=== PATIENT | female | born 1995 | race Caucasian/White ===

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

== ENCOUNTER 2018-08-12 20:13 | Emergency (ER) | payer OTHER ==
[~2018-08-12] VITALS: Ht 160 cm; Wt 72.5 kg
[~2018-08-12 20:13] MED LIST changes: +AMOX1TAB10 PO; +SODI126M NASAL
[2018-08-12 20:21] VITALS: Ht 160 cm; Wt 72.5 kg
--- NOTE | 2018-08-12 22:22 | ERD ---
ER Documentation Chief Complaint Chief Complaint FINGER PAIN, L 3RD DIGIT X'S 2 DAYS HPI This is a 23-year-old female presents here to emerge department with complaints of left middle finger pain, mild redness for about 2 days. Stated that she might have been bitten by a insect. Also complains of right lower back pain that rates right lower extremity. LMP: 08/10/2018. G0, . Denies headache, head injury, loss of consciousness, dizziness, neck pain, neck stiffness, throat pain, difficulty swallowing, difficulty breathing lying flat, shoulder pain, chest pain, back pain, abdominal pain, nausea, vomiting, constipation, diarrhea, urinary symptoms, or possibility being , loss of bowel and bladder control, trauma, injury, falls, difficulty walking due to pain, numbness or tingling sensation, calf pain, recent travel, recent major surgery in the last 3 weeks, calf pain, recent long travel, recent exposure to any illness, recent antibiotic use in the last 3 months, fever, chills, seizures. Past medical history: Surgical history: Social: Denies smoking, use of alcoholic beverages, use of illegal drugs. ROS All systems reviewed and are negative except as per history of present illness. Medications Home Meds Active Scripts Cyclobenzaprine Hcl* (Cyclobenzaprine Hcl*) 10 Mg Tablet, 10 MG PO TID PRN for MUSCLE SPASMS, #15 TAB Prov:ANDERARACELIDALIAKALEIGH F 08/12/18 Cephalexin* (Keflex*) 500 Mg Capsule, 500 MG PO TID for 7 Days, CAP Prov:PASILACLEMDALIAAR F 08/12/18 Ibuprofen* (Motrin*) 800 Mg Tab, 800 MG PO Q6H PRN for PAIN AND OR ELEVATED TEMP, #30 TAB Prov:ANDERILADALIA NJAR F 08/12/18 Sodium Chloride (Saline Nasal Mist) 126 Ml Mist, 2 SPRAY NASAL Q2H PRN for NASAL CONGESTION, #1 BOTTLE Prov:VARSHA ANGELO CRYPTOLOGIC SUPPORT SPECIALIST 07/17/16 Ibuprofen* (Motrin*) 600 Mg Tab, 600 MG PO Q6H PRN for PAIN AND OR ELEVATED TEMP, #30 TAB Prov:VARSHA ANGELO CRYPTOLOGIC SUPPORT SPECIALIST 07/17/16 Amoxicillin/Potassium Clav (Amox-Clav 875-125 mg Tablet) 875-125 mg Tab, 1 TAB PO BID for 10 Days, #20 TAB Prov:VARSHA ANGELOPoornima WEST 07/17/16 Prednisone* (Prednisone*) 50 Mg Tablet, 5 MG PO DAILY, #5 TAB Prov:KAYLEE JENKINS PA-C 12/09/14 Ibuprofen* (Motrin*) 600 Mg Tab, 600 MG PO Q6H PRN for PAIN, #14 TAB Prov:NICK MALIK MD 11/07/14 Allergies Allergies: Coded Allergies: No Known Allergy (Unverified , 11/07/14) PMhx/Soc Medical and Surgical Hx: pt denies Medical Hx, pt denies Surgical Hx Hx Alcohol Use: No Hx Substance Use: No Hx Tobacco Use: No Smoking Status: Never smoker Physical Exam Vitals Physical Exam Const: No acute distress Head: Atraumatic Eyes: Normal Conjunctiva ENT: Normal External Ears, Nose and Mouth. Neck: Full range of motion. No meningismus. Resp: Clear to auscultation bilaterally Cardio: Regular rate and rhythm, no murmurs Abd: Soft, non tender, non distended. Normal bowel sounds Skin: No petechiae or rashes Back: No midline or flank tenderness. L-spine is in midline with good and full range of motion and is no swelling/deformity/bulging/point of tenderness. Positive right straight leg test. Bilateral hips are stable and unremarkable. Left lower extremity is unremarkable. No calf tenderness bilaterally. Ext: No cyanosis, or edema. Left middle finger: Distal area has a redness with mild swelling. No felon. No paronychia. No subungual hematoma. MCP/PIP/DIP is good and full range of motion with good and full flexion underscore 5/5. Very low suspicion of tendon injury. Neur: Awake and alert. No neurological deficits. Psych: Normal Mood and Affect Results 24 hrs Laboratory Tests Test 08/12/18 22:18 POC Beta HCG, Qualitative NEGATIVE Current Medications Medications Dose Sig/Velma Start Time Status Last (Trade) Ordered Route PRN Stop Time Admin Dose Reason Admin Ibuprofen 800 mg ONCE ONCE 08/12/18 DC 08/12/18 (Motrin) PO 23:00 22:40 08/12/18 23:00 10 mg ONCE ONCE 08/12/18 DC 08/12/18 Cyclobenzapri PO 23:00 22:40 ne HCl 08/12/18 23:00 (Flexeril) Procedures/MDM Diagnostic tests: Clinical exam. Treatment: Motrin. Flexeril. Re-evaluation: Denies pain. No neurovascular deficits. No neurological deficit. Differential diagnosis I have low suspicion for felon, paronychia, open fracture, tendon injury, septic joint, pyelonephritis, spinal fracture, compartment syndrome, DVT. Final diagnosis: Infected insect bite. Musculoskeletal pain. Prescription: Keflex. Motrin. Flexeril. Follow-up with PCP in the next 24-48 hours. Come back here in the emergency department for any new symptoms or any worsening symptoms. All questions and concerns were answered. Patient and family members verbalized understanding and agreed with plan of care. Hemodynamically stable on discharge. Departure Diagnosis: Primary Impression: Infected insect bite Additional Impressions: Finger pain, left Musculoskeletal pain Condition: Stable Additional Instructions: Follow-up with PCP in the next 24-48 hours. Come back here in the emergency department for any new symptoms or any worsening symptoms. EVERARDO SWEET Aug 12, 2018 22:22
[2018-08-12] MEDS ORDERED: IBUP800T48 PO (22:34)
[2018-08-12] MEDS ORDERED: CYCL10TA7 PO (22:35)
[2018-08-12] MEDS ORDERED: CEPH-443 PO (22:35)
[2018-08-12 22:52] VITALS: BP 115/68; PULSE 85; RESP 18
[2018-08-12] MEDS ORDERED: CYCLOBENZAPRINE 10 MG TAB PO ONE (23:00)
[2018-08-12] MEDS ORDERED: IBUPROFEN 800 MG TAB PO ONE (23:00)
== END 2018-08-12 22:54 | disposition home or self-care (01) ==
LOC: FTE 20:13
DX: S60.463A Insect bite (nonvenomous) of left middle finger, initial encounter (principal); L08.9 Local infection of the skin and subcutaneous tissue, unspecified; W57.XXXA Bitten or stung by nonvenomous insect and other nonvenomous arthropods, initial encounter; Y92.9 Unspecified place or not applicable
CPT/HCPCS: 81025; Z7502; Z7610; 99283